=== PATIENT | female | born 1985 | race Two or more races ===

== ENCOUNTER 2024-03-03 10:03 | Emergency (ER) | payer MEDICAID, OTHER ==
[~2024-03-03] VITALS: Ht 162.6 cm; Wt 133.6 kg
[2024-03-03 11:56] LABS: Urine Bacteria FEW /hpf (None Seen); Urine Blood Negative /uL (Negative); Urine Clarity Clear (Clear); Urine Color Yellow (Yellow); Urine Mucus FEW (None Seen); Urine Protein, UAD Negative (Negative); Urine Specific Gravity 1.023 (1.001-1.035); Urine Urobilinogen Normal (Negative); Urine WBC 2 /hpf (0 - 5)
[2024-03-03 13:21] VITALS: BP 124/89; PULSE 84; RESP 16; TEMP 98.4; O2SAT 97
== END 2024-03-03 13:23 | disposition home or self-care (01) ==
LOC: ER 10:03
DX: R35.0 Frequency of micturition (principal); Z88.5 Allergy status to narcotic agent
CPT/HCPCS: 81001; 81025